=== PATIENT | female | born 1995 | race Caucasian/White ===

== ENCOUNTER 2018-07-30 12:57 | Emergency (ER) | payer MEDICAID, OTHER ==
[~2018-07-30] VITALS: Ht 175.3 cm; Wt 84.5 kg
[2018-07-30 13:03] VITALS: BP 140/76; PULSE 104; RESP 18; Ht 175.3 cm; Wt 84.5 kg
[2018-07-30] MEDS ORDERED: ALBUTEROL 0.083% (NEB) 2.5 MG/3 ML AMP NEB STA (13:51)
[2018-07-30] MEDS ORDERED: predniSONE 20 MG TAB PO STA (13:51)
[2018-07-30] MEDS ORDERED: IPRATROPIUM (NEB) 0.5 MG/2.5 ML AMP NEB STA (13:51)
[2018-07-30] MEDS ORDERED: AZIT250T PO (13:58)
[2018-07-30] MEDS ORDERED: PRED20TA PO (13:58)
[2018-07-30] MEDS ORDERED: ALBU18HF INHALATION (13:58)
--- NOTE | 2018-07-30 14:02 | ERD ---
ER Documentation Chief Complaint Chief Complaint nasal congestion & sob x3 days, speaking full sentences HPI 23-year-old female with a history of asthma, smoking history presents with sever al days of cough congestion. The patient has subjective fevers, cough that is slightly productive. Patient is still smoking. She ran out of her inhaler. She feels that her shortness of breath is slightly worse than baseline. She denies any hemoptysis, weight loss. ROS All systems reviewed and are negative except as per history of present illness. Medications Home Meds Active Scripts Azithromycin* (Zithromax*) 250 Mg Tablet, 250 MG PO .ZPACK DIRECTED, #6 TAB TAKE 500 MG (2 TABS) THE FIRST DAY THEN 250 MG (1 TAB) DAYS 2-5 Prov:ALEIDA MALDONADO MD 07/30/18 Prednisone* (Prednisone*) 20 Mg Tab, 40 MG PO DAILY for 4 Days, TAB Prov:ALEIDA MALDONADO MD 07/30/18 Albuterol Sulfate* (Ventolin HFA*) 18 Gm Hfa.aer.ad, 2 PUFF INHALATION Q4H, #1 INHALER 1 Refill Prov:ALEIDA MALDONADO MD 07/30/18 Allergies Allergies: Coded Allergies: No Known Allergy (Unverified , 07/30/18) PMhx/Soc Medical and Surgical Hx: pt denies Surgical Hx Hx Respiratory Disorders: Yes (asthma) Hx Psychiatric Problems: Yes (insomnia,anxiety) Hx Miscellaneous Medical Probl: Yes (gastritis) Hx Alcohol Use: No Hx Substance Use: No Hx Tobacco Use: Yes Smoking Status: Current every day smoker FmHx Family History: No diabetes Physical Exam Vitals Vital Signs Date Temp Pulse Resp B/P (MAP) Pulse Ox O2 O2 Flow FiO2 Time Delivery Rate 07/30/18 97.9 104 18 140/76 95 13:03 (97) Physical Exam General: Well developed, well nourished, no acute distress Head: Normocephalic, atraumatic. Eyes: Pupils equally reactive, EOM intact ENT: Moist mucous membranes Neck: Supple, no lymphadenopathy Respiratory: Scant wheezing and rhonchi diffusely, clear slightly with coughing. No respiratory distress or increased work of breathing Cardiovascular: RRR, no murmurs, rubs, or gallops Abdominal: Soft, non-tender, non-distended, no peritoneal signs : Deferred MSK: No edema, no unilateral swelling, 5/5 strength Neurologic: Alert and oriented, moving all extremities, normal speech, no focal weakness, no cerebellar signs Skin: No rash Psych: Normal mood Results 24 hrs Current Medications Medications Dose Sig/Isac Start Time Status Last (Trade) Ordered Route PRN Stop Time Admin Dose Reason Admin Albuterol 2.5 mg ONCE STAT 07/30/18 DC (Proventil NEB 13:51 07/30/18 0.083% (Neb)) 13:53 Ipratropium 0.5 mg ONCE STAT 07/30/18 DC Shiloh NEB 13:51 07/30/18 (Atrovent 13:53 0.02% (Neb)) Prednisone 60 mg ONCE STAT 07/30/18 DC 07/30/18 (Prednisone) PO 13:51 07/30/18 13:57 13:53 Procedures/MDM MEDICAL DECISION MAKING: Clinical exam and history consistent with respiratory tract infection, possibly secondary to community acquired pneumonia given the patient's lung findings. Oxygen saturation at 95%. Patient has no respiratory distress. I believe it would be reasonable to initiate the patient on empiric antibiotics for community acquired pneumonia. No antibiotics within the last 3 months, monotherapy with azithromycin will be reasonable. The patient will benefit from breathing treatment and steroids here in the emergency room setting. No indication for x- ray given empiric therapy will be initiated. No respiratory distress and likely to tolerate outpatient therapy and management. ER COURSE: * Patient was given a DuoNeb, 60 of prednisone. His symptoms improved. * Patient can be safely discharged. CONSULTATION: None DISPOSITION PLAN: The patient does not have an identifiable emergent medical condition that warrants inpatient hospitalization at this time. The patient is deemed safe for discharge with outpatient follow-up. We discussed follow up with the patient's primary care doctor within 24 to 48 hours as needed. We also discussed return to the emergency room for worsening symptoms or worsening condition. Smoking Cessation: I had a greater than 3 minute conversation with the patient regarding smoking cessation. We discussed multiple alternatives. Outpatient referral: None required Discharge Medications: Albuterol, prednisone, azithromycin Departure Diagnosis: Primary Impression: Community acquired pneumonia Laterality: unspecified laterality Qualified Codes: J18.9 - Pneumonia, unspecified organism Additional Impression: Asthma with exacerbation Asthma severity: mild Asthma persistence: intermittent Qualified Codes: J45.21 - Mild intermittent asthma with (acute) exacerbation Condition: Stable Patient Instructions: Asthma, Acute (Adult), Pneumonia (Adult) Referrals: [facility] YOU HAVE RECEIVED A MEDICAL SCREENING EXAM AND THE RESULTS INDICATE THAT YOU DO NOT HAVE A CONDITION THAT REQUIRES URGENT TREATMENT IN THE EMERGENCY DEPARTMENT. FURTHER EVALUATION AND TREATMENT OF YOUR CONDITION CAN WAIT UNTIL YOU ARE SEEN IN YOUR DOCTORS OFFICE WITHIN THE NEXT 1-2 DAYS. IT IS YOUR RESPONSIBILITY TO MAKE AN APPOINTMENT FOR FOLOW-UP CARE. IF YOU HAVE A PRIMARY DOCTOR --you should call your primary doctor and schedule an appointment IF YOU DO NOT HAVE A PRIMARY DOCTOR YOU CAN CALL OUR PHYSICIAN REFERRAL HOTLINE AT IF YOU CAN NOT AFFORD TO SEE A PHYSICIAN YOU CAN CHOSE FROM THE FOLLOWING [facility] [address] [facility] [address] [facility] [facility] [address] [facility] [address] [facility] [address] [facility]. [facility] [address] [facility]. [facility] YOU HAVE RECEIVED A MEDICAL SCREENING EXAM AND THE RESULTS INDICATE THAT YOU DO NOT HAVE A CONDITION THAT REQUIRES URGENT TREATMENT IN THE EMERGENCY DEPARTMENT. FURTHER EVALUATION AND TREATMENT OF YOUR CONDITION CAN WAIT UNTIL YOU ARE SEEN IN YOUR DOCTORS OFFICE WITHIN THE NEXT 1-2 DAYS. IT IS YOUR RESPONSIBILITY TO MAKE AN APPOINTMENT FOR FOLOW-UP CARE. IF YOU HAVE A PRIMARY DOCTOR --you should call your primary doctor and schedule and appointment IF YOU DO NOT HAVE A PRIMARY DOCTOR YOU CAN CALL OUR PHYSICIAN REFERRAL HOTLINE AT . IF YOU CAN NOT AFFORD TO SEE A PHYSICIAN YOU CAN CHOSE FROM THE FOLLOWING [facility] INSTITUTIONS: [facility] [address] [place] [address] [facility] [address] [place] [address] [facility] [address] [place] [address] Additional Instructions: Call your primary care doctor TOMORROW for an appointment during the next 1 WEEK.Tell the jailer/training officer that you were referred from this facility.See the doctor sooner or return here if your condition worsens before your appointment time. ALEIDA MALDONADO MD Jul 30, 2018 14:02
== END 2018-07-30 14:59 | disposition home or self-care (01) ==
LOC: FTE 12:57
DX: J18.9 Pneumonia, unspecified organism (principal); F17.210 Nicotine dependence, cigarettes, uncomplicated; J45.21 Mild intermittent asthma with (acute) exacerbation
CPT/HCPCS: 94664; J7512; Z7502; Z7610

== ENCOUNTER 2018-10-15 02:10 | Emergency (ER) | payer MEDICAID ==
[~2018-10-15] VITALS: Ht 175.3 cm; Wt 85.5 kg
[~2018-10-15 02:10] MED LIST: ALBU18HF INHALATION; AZIT250T PO; PRED20TA PO
[2018-10-15 02:19] VITALS: BP 116/75; PULSE 92; RESP 18; Ht 175.3 cm; Wt 85.5 kg
[2018-10-15] MEDS ORDERED: ONDANSETRON (ODT) 4 MG TAB ODT STA (02:56)
--- NOTE | 2018-10-15 02:56 | ERD ---
ER Documentation Chief Complaint Chief Complaint AP, VOMITING X'S 1 DAY; HX OF GASTRITIS HPI This is a 23-year-old female presented emergency department with complaints of abdominal pain and vomiting for about a day. Vomited with nonbilious nonbloody emesis once a day. Has history of gastritis. LMP: Last night. G0, . Denies headache, head injury, loss of consciousness, dizziness, neck pain, neck stiffness, throat pain, difficulty swallowing, difficulty breathing lying flat, shoulder pain, chest pain, back pain, abdominal pain, nausea, vomiting, constipation, diarrhea, urinary symptoms, or possibility being , loss of bowel and bladder control, trauma, injury, falls, difficulty walking due to pain, numbness or tingling sensation, calf pain, recent travel, recent major surgery in the last 3 weeks, calf pain, recent long travel, recent exposure to any illness, recent antibiotic use in the last 3 months, fever, chills, seizures. Past medical history: Surgical history: Social: Denies smoking, use of alcoholic beverages, use of illegal drugs. ROS All systems reviewed and are negative except as per history of present illness. Medications Home Meds Active Scripts Ranitidine Hcl* (Zantac*) 150 Mg Tablet, 150 MG PO BID PRN for EPIGASTRIC PAIN, #30 TAB Prov:ADRIANNA GRIMALDO 10/15/18 Docusate Sodium* (Colace*) 100 Mg Capsule, 100 MG PO DAILY PRN for CONSTIPATION, #30 CAP Prov:PASILAADRIANNA DYE 10/15/18 Ondansetron Hcl* (Zofran*) 4 Mg Tablet, 4 MG PO Q8H PRN for NAUSEA AND/OR VOMITING, #30 TAB Prov:PASILAADRIANNA DYE 10/15/18 Acetaminophen* (Tylophen*) 500 Mg Capsule, 1 CAP PO Q6H PRN for PAIN AND OR ELEVATED TEMP, #20 CAP Prov:PASILAADRIANNA DYE 10/15/18 Azithromycin* (Zithromax*) 250 Mg Tablet, 250 MG PO .ZPACK DIRECTED, #6 TAB TAKE 500 MG (2 TABS) THE FIRST DAY THEN 250 MG (1 TAB) DAYS 2-5 Prov:ALEIDA MALDONADO MD 07/30/18 Prednisone* (Prednisone*) 20 Mg Tab, 40 MG PO DAILY for 4 Days, TAB Prov:ALEIDA MALDONADO MD 07/30/18 Albuterol Sulfate* (Ventolin HFA*) 18 Gm Hfa.aer.ad, 2 PUFF INHALATION Q4H, #1 INHALER 1 Refill Prov:ALEIDA MALDONADO MD 07/30/18 Allergies Allergies: Coded Allergies: No Known Allergy (Unverified , 07/30/18) PMhx/Soc Hx Respiratory Disorders: Yes (asthma) Hx Psychiatric Problems: Yes (insomnia,anxiety) Hx Miscellaneous Medical Probl: Yes (gastritis) Hx Alcohol Use: No Hx Substance Use: No Hx Tobacco Use: Yes Smoking Status: Current every day smoker Physical Exam Vitals Physical Exam Const: No acute respiratory distress Head: Atraumatic Eyes: Normal Conjunctiva ENT: Normal External Ears, Nose and Mouth. Neck: Full range of motion. No meningismus. Resp: Clear to auscultation bilaterally Cardio: Regular rate and rhythm, no murmurs Abd: Soft, non tender, non distended. Normal bowel sounds. Negative Gale sign. Negative Sammie sign (heel jar test). Negative psoas sign. Negative Rovsing sign. No CVA tenderness. Examined with female actuarial mathematician. Has mild suprapubic tenderness. Bilateral inguinal area has no swelling/bulging/tenderness. Skin: No petechiae or rashes. Color appears normal for ethnicity. No skin tenting. No signs of severe dehydration. Back: No midline or flank tenderness Ext: No cyanosis, or edema Neur: Awake and alert. No neurological deficits. Psych: Normal Mood and Affect Results 24 hrs Laboratory Tests Test 10/15/18 02:38 10/15/18 02:43 Urine Color YELLOW Urine Clarity CLOUDY Urine pH 5.0 Urine Specific [place] 1.029 Urine Ketones 2+ mg/dL Urine Nitrite NEGATIVE mg/dL Urine Bilirubin NEGATIVE mg/dL Urine Urobilinogen NEGATIVE mg/dL Urine Leukocyte Esterase NEGATIVE Thuy/ul Urine Microscopic RBC 4 /HPF Urine Microscopic WBC 7 /HPF Urine Squamous Epithelial Cells MANY /HPF Urine Bacteria FEW /HPF Urine Mucus MANY /HPF Urine Hemoglobin 1+ mg/dL Urine Glucose NEGATIVE mg/dL Urine Total Protein NEGATIVE mg/dl Urine Opiates Screen Negative Urine Barbiturates Negative Urine Amphetamines Screen Negative Urine Benzodiazepines Screen Negative Urine Cocaine Screen Negative Urine Cannabinoids Positive Bedside Urine pH (LAB) 5.5 Bedside Urine Protein (LAB) 1+ Bedside Urine Glucose (UA) Negative Bedside Urine Ketones (LAB) 3+ Bedside Urine Blood 1+ Bedside Urine Nitrite (LAB) Negative Bedside Urine Leukocyte Esterase (L Negative POC Beta HCG, Qualitative NEGATIVE Current Medications Medications Dose Sig/Isac Start Time Status Last (Trade) Ordered Route PRN Stop Time Admin Dose Reason Admin Ondansetron 4 mg ONCE STAT 10/15/18 DC 10/15/18 HCl (Zofran ODT 02:56 03:08 Odt) 10/15/18 02:58 40 ml ONCE ONCE 10/15/18 DC 10/15/18 Miscellaneous PO 03:00 03:09 Medication 10/15/18 03:01 (Gi Cocktail (2)) Famotidine 40 mg ONCE ONCE 10/15/18 DC 10/15/18 (Pepcid) PO 03:00 03:09 10/15/18 03:01 Procedures/MDM Diagnostic tests: POC urine : Negative. Urinalysis: Reviewed. Urine drug screen: Positive for cannabinoids. Culture urine: Sent. X-ray of the abdomen: Small amount of retained gas and stool within the colon, otherwise no acute findings. Treatment: Zofran. Pepcid. GI cocktail. Re-evaluation: No episode of emesis here in the emergency department. Observed comfortable and walking around the waiting area. Negative Gale sign. Negative [place] sign (heel jar test). Negative psoas sign. Negative Homans sign. No CVA tenderness. Able to jump 10 times without developing lower abdominal pain. Differential diagnosis I have low suspicion for pancreatitis, cholecystitis, diverticulitis, bowel obstruction, appendicitis, kidney stones. Final diagnosis: Constipation. Abdominal discomfort secondary to use of cannabis. Prescription: Zofran. Tylenol. Zantac. Colace. Follow-up with PCP in the next 24-48 hours. Follow-up with plant biology professor in the next 3 to 5 days. Come back here in the emergency department for any new symptoms or any worsening symptoms. All questions and concerns were answered. Patient and family members verbalized understanding and agreed with plan of care. Hemodynamically stable on discharge. Departure Diagnosis: Primary Impression: Abdominal pain Additional Impression: Constipation Condition: Stable Additional Instructions: Follow-up with PCP in the next 24-48 hours. Follow-up with plant biology professor in the next 3 to 5 days. Come back here in the emergency department for any new symptoms or any worsening symptoms. ADRIANNA GRIMALDO Oct 15, 2018 02:56
[2018-10-15] MEDS ORDERED: FAMOTIDINE 20 MG TAB PO ONE (03:00)
[2018-10-15] MEDS ORDERED: LIDOCAINE/MYLANTA 40 ML BTL PO ONE (03:00)
[2018-10-15] MEDS ORDERED: ACET500C5 PO (06:02)
[2018-10-15] MEDS ORDERED: DOCU-144 PO (06:03)
[2018-10-15] MEDS ORDERED: ONDA4TAB8 PO (06:03)
[2018-10-15] MEDS ORDERED: RANI150T35 PO (06:03)
== END 2018-10-15 06:34 | disposition home or self-care (01) ==
LOC: FTE 02:10
DX: K59.00 Constipation, unspecified (principal); J45.909 Unspecified asthma, uncomplicated; F17.210 Nicotine dependence, cigarettes, uncomplicated
CPT/HCPCS: 74018; 80307; 81001; 81025; 87086; Z7502; Z7610; 81003